=== PATIENT | female | born 1980 | race Caucasian/White ===

== ENCOUNTER → 2016-10-10 | Outpatient (CLI) | payer OTHER, MEDICAID ==
[~2016-10-10] MED LIST: MOTRIN800 MG PO; NORCO 5-325 TA1 EACH PO; PAIN RELIEF500 M1 PO; PREDNISONE10 MG PO
== END | disposition disaster alternative care site (69) ==
LOC: GRAD 11:06
DX: R06.02 Shortness of breath (principal); R59.1 Generalized enlarged lymph nodes; R91.8 Other nonspecific abnormal finding of lung field
CPT/HCPCS: Q9967

== ENCOUNTER → 2016-10-27 | Day surgery (SDC) | payer OTHER, MEDICAID ==
[~2016-10-27] VITALS: Ht 170.2 cm; Wt 108.3 kg
--- NOTE | ~2016-10-27 | OR ---
PATIENT'S NAME: KALEN BOATENG [facility] AGE: 36 Y [address] ROOM: [place] [address] LOCATION: GEND ADMIT DATE: 10/27/2016 OR/Procedure Report DISCHARGE DATE: FAMILY PHYSICIAN: Kera Chavarria MD ATTENDING PHYSICIAN: Markell Arnold SURGEON: Markell Arnold MD MANAGER UROLOGY: DATE OF PROCEDURE: 10/27/2016 PROCEDURE PERFORMED: Fiberoptic bronchoscopy with transbronchial biopsy, right lower lobe, and transbronchial needle aspirate, main mercedes. PREOPERATIVE DIAGNOSIS: Bilateral hilar adenopathy and pulmonary nodules. POSTOPERATIVE DIAGNOSIS: Bilateral hilar adenopathy and pulmonary nodules. OPERATIVE SUMMARY: After obtaining informed consent, we proceeded. Explanation of risks, benefits, medical necessity, and the risks and benefits of IV conscious sedation were explained. The patient was given intravenous Versed a total of 6 mg and intravenous fentanyl 75 mcg. An Olympus videobronchoscope was passed orally. Trachea was normal. Vocal cords were normal. Airways were examined to the segmental level with no significant abnormalities. Using fluoroscopic guidance, we did 3 transbronchial biopsies in the right lower lobe. Mild bleeding was encountered. Needle aspiration was then carried out at the main mercedes twice. The patient tolerated the procedure well with no complications. MARKELL ARNOLD MD DEC/modl /[id number] CC: Kera Chavarria MD d: 10/27/16 1209 t: 10/31/16 0721, OPERATIVE SUMMARY
--- NOTE | 2016-10-27 07:03 | NUR ---
ONE IV ATTEMPT MADE PER PINEDA Herrera RN
== END | disposition disaster alternative care site (69) ==
LOC: GPOC 10-23 13:00 → GEND 06:24 → GPOC 13:00
PROC: 0BBF8ZX Excision of Right Lower Lung Lobe, Via Natural or Artificial Opening Endoscopic, Diagnostic (ICD-10-PCS; principal; 2016-10-27)
DX: R59.0 Localized enlarged lymph nodes (principal); R91.1 Solitary pulmonary nodule; Z87.891 Personal history of nicotine dependence; Z88.0 Allergy status to penicillin; Z88.1 Allergy status to other antibiotic agents; Z88.8 Allergy status to other drugs, medicaments and biological substances; Z98.890 Other specified postprocedural states
CPT/HCPCS: J2250; J3010; J7030

== ENCOUNTER → 2016-11-07 | Day surgery (SDC) | payer OTHER, MEDICAID ==
[~2016-11-07] VITALS: Ht 170.2 cm; Wt 108.4 kg
--- NOTE | ~2016-11-07 | OR ---
PATIENT'S NAME: KALEN BOATENG [facility] AGE: 36 Y [address] ROOM: [place] [address] LOCATION: [facility] ADMIT DATE: 11/07/2016 OR/Procedure Report DISCHARGE DATE: FAMILY PHYSICIAN: Kera Chavarria MD ATTENDING PHYSICIAN: Harinder Amaral SURGEON: Harinder Amaral DO TEMPERING KILN TENDER: DATE OF PROCEDURE: 11/07/2016 PREOPERATIVE DIAGNOSIS: Mediastinal adenopathy. POSTOPERATIVE DIAGNOSIS: Mediastinal adenopathy. PROCEDURE: Mediastinoscopy with mediastinal node biopsy. SPECIMENS: 4L and 4R lymph node stations. BRIEF HISTORY: Mrs. Boateng is a 36-year-old white female with the above- noted diagnosis. She has been brought to the operative suite today after informed consent was obtained. Sterilely prepped and draped in usual fashion for mediastinoscopy. General anesthetic was induced. A curvilinear incision was made approximately 1 fingerbreadth above the suprasternal notch and dissection was carried out with electrocautery and blunt and sharp dissection to the level of the pretracheal space. The tracheal fascia and rings were identified. The anterior mediastinum was entered bluntly, and the mediastinoscope was placed and passed along the anterior surface of the trachea. We identified lymph nodes in 4L and 4R stations, sampled these for frozen, histologic, and microbiologic samples. Electrocautery was again used for hemostasis, and the mediastinoscope was withdrawn. The strap muscles were then approximated with 2-0 Vicryl, platysma was closed with 2-0 Vicryl, and skin with 4-0 Monocryl. Dressing was applied. The patient was extubated and transferred to the recovery in stable condition. HARINDER AMARAL DO MCB/surajl /[id number] d: 11/14/16 1845 t: 11/17/16 0951, OPERATIVE SUMMARY
[2016-11-07 06:57] LABS: BASOPHIL # 0.1 K/uL (0.0-0.2); BASOPHIL % 0.9 %; EOSINOPHIL # 0.2 K/uL (0.0-0.5); EOSINOPHIL % 3.2 %; HEMATOCRIT 38.6 % (33.0-46.0); HEMOGLOBIN 13.3 g/dL (11.0-15.0); IMMATURE GRANULOCYTE % 0.2 %; LYMPHOCYTE # 1.9 K/uL (0.8-4.0); LYMPHOCYTE % 34.1 %; MCH 30.8 pg (27.0-34.0); MCHC 34.5 gm/dL (32.0-36.5); MCV 89.4 fl (83.0-98.0); MONOCYTE # 0.6 K/uL (0.0-1.0); MONOCYTE % 10.6 %; MPV 9.4 fl (9.4-12.4); NEUTROPHIL # (ANC) 2.8 K/uL (1.8-7.8); NRBC % 0 /100WBC (0-0.00); PLATELET COUNT 218 K/uL (150-450); RBC 4.32 M/uL (3.50-5.50); RDW-CV 13.2 % (11.9-14.6); WBC 5.6 K/uL (4.0-11.0)
[2016-11-07 07:09] LABS: INR - (THERAPEUTIC) 0.95 (0.92-1.07)
--- NOTE | 2016-11-07 09:39 | NUR ---
REPORT TO Diana WALTER, RN, PT TO ROOM 1039 PER CART
== END ==
LOC: GPOC 11-05 10:00 → GSDC 06:00
PROVIDERS: Thoracic Surgery (Cardiothoracic Vascular Surgery)
PROC: 07B74ZX Excision of Thorax Lymphatic, Percutaneous Endoscopic Approach, Diagnostic (ICD-10-PCS; principal; 2016-11-07)
DX: I89.9 Noninfective disorder of lymphatic vessels and lymph nodes, unspecified (principal); R59.0 Localized enlarged lymph nodes; Z88.0 Allergy status to penicillin; Z88.1 Allergy status to other antibiotic agents; Z88.8 Allergy status to other drugs, medicaments and biological substances; Z87.891 Personal history of nicotine dependence; Z79.899 Other long term (current) drug therapy; Z98.890 Other specified postprocedural states
CPT/HCPCS: J1100; J1885; J2001; J2250; J2270; J2405; J3370; J7120